=== PATIENT | female | born 1960 | race Caucasian/White ===

== ENCOUNTER 2021-01-20 00:22 | Emergency (ER) | payer OTHER ==
[~2021-01-20] VITALS: Ht 175.3 cm; Wt 80.0 kg
--- NOTE | 2021-01-20 00:31 | NUR ---
INTIAL PT CONTACT. PT SHAHEEN FROM [facility] FOR GLF, FOLLOWING FALL NAUSEA AND VOMITING, RESOLVED NOW. NOW C/O PAIN TO BACK OF HEAD. NO LOC, NO THINNER USE. PT SITTING UPRIGHT ON GURNEY, A&OX4, PER FACILITY TRANSFERING PT, PT ACTING APPROPRIATELY FOR SELF AND ACTING HER NORM. PT SITTING UPRIGHT ON GURNEY, VERY TALKATIVE. CONTINUOUS MONITORING IN PLACE. CALL LIGHT AND PERSONAL BELONGINGS WITHIN REACH.
[2021-01-20] MEDS ORDERED: ONDANSETRON 2MG/ML, 2ML ONE ×2 (01:14→02:57)
[2021-01-20] MEDS ORDERED: MORPHINE SULFATE 4 MG/ML, 1ML ONE (01:15)
--- NOTE | 2021-01-20 01:25 | NUR ---
TASK RN: PT STATES MINIMAL PAIN, REFUSED PAIN MEDS AND ZOFRAN AT THIS TIME. WILL CONTINUE TO MONITOR
[2021-01-20] MEDS ORDERED: ONDANSETRON 2MG/ML, 2ML IVPush ONE (01:30)
[2021-01-20] MEDS ORDERED: MORPHINE SULFATE 4 MG/ML, 1ML IVPush PRN (01:30)
[2021-01-20 03:27] VITALS: BP 143/85
--- NOTE | 2021-01-20 03:28 | NUR ---
Patient given discharge instructions and they have confirmed that they understand the instructions. Patient ambulatory with steady gait. NAD, all questions answered appropriately, denies additional needs at this time. No personal belongings left in room after discharge.
== END 2021-01-20 03:30 | disposition home or self-care (01) ==
LOC: ED 03:24
DX: S06.0X0A Concussion without loss of consciousness, initial encounter (principal); C71.9 Malignant neoplasm of brain, unspecified; M54.2 Cervicalgia; W01.0XXA Fall on same level from slipping, tripping and stumbling without subsequent striking against object, initial encounter; Y93.89 Activity, other specified; Y92.89 Other specified places as the place of occurrence of the external cause; Y99.8 Other external cause status
CPT/HCPCS: 70450; 72125; 96374; 99285; J2405